=== PATIENT | female | born 1950 | race Caucasian/White ===

== ENCOUNTER → 2023-08-07 12:35 | Outpatient (BNV) | payer MEDICARE, SELFPAY | PROVIDERS: Visit Provider Student in an Organized Health Care Education/Training Program | DX: I83.812 Varicose veins of left lower extremity with pain (principal) | CPT/HCPCS: 36470; 76937 ==

== ENCOUNTER 2023-08-07 12:51 | Outpatient (REF) | payer MEDICARE, SELFPAY ==
--- NOTE | ~2023-08-07 | IR_ITS ---
PROCEDURE: Ultrasound-guided foam sclerotherapy left lower extremity varicose veins PREPROCEDURE DIAGNOSIS: Varicose veins POSTPROCEDURE DIAGNOSIS: Same INDICATION: Symptomatic varicose veins left lower extremity. Symptoms include throbbing and aching. PROCEDURE DETAILS/FINDINGS: Preliminary ultrasound was performed which again demonstrated the varicose veins on the left posterior/lateral thigh and posterolateral upper calf. The leg was prepped and draped. Foam was prepared by the centerless grinder operator using the Tessari method utilizing 1% sodium tetradecyl and room air in a 1:4 ratio. The varicose veins in the left leg were treated using the foam mixture and delivered via a 23 gauge needle under direct ultrasound guidance with permanent recordings. A total of 6 cc of foam was delivered via a single access. The treated veins included the tributary varicose veins which communicate to the GSV. Post treatment ultrasound demonstrates successful occlusion of the treated veins. A gauze compression wrap was applied to the treated area. The patient tolerated the procedure well. SEDATION: None COMPLICATION: None immediately EBL: None IR/IR inject sclerosant one vein IMPRESSION: Successful ultrasound guided foam sclerotherapy of the left lower extremity.
== END 2023-08-07 12:52 | disposition home or self-care (01) ==
LOC: HO.RADIR 12:51
DX: I83.892 Varicose veins of left lower extremity with other complications (principal)
CPT/HCPCS: 36470; 76942